=== PATIENT | male | born 1975 | race Caucasian/White ===

== ENCOUNTER 2022-12-21 11:58 | Emergency (ER) | payer MEDICAID ==
[~2022-12-21] VITALS: Ht 175.3 cm; Wt 99.8 kg
[2022-12-21 12:16] VITALS: BP_SYST 132; PULSE 116; RESP 18; TEMP 97.9; O2SAT 98
[2022-12-21] MEDS ORDERED: SULF1TAB47 PO (12:44)
[2022-12-21] MEDS ORDERED: BACITRACIN 1 GM OINT TP ONE (12:45)
[2022-12-21 13:43] VITALS: BP_SYST 126; PULSE 74; RESP 18; TEMP 97.1; O2SAT 97
== END 2022-12-21 12:59 | disposition home or self-care (01) ==
LOC: SED 11:58
DX: L03.113 Cellulitis of right upper limb (principal); Z79.899 Other long term (current) drug therapy
CPT/HCPCS: 99283

== ENCOUNTER 2023-06-07 19:37 | Emergency (ER) | payer MEDICAID ==
[~2023-06-07] VITALS: Ht 175.3 cm; Wt 90.7 kg
[~2023-06-07 19:37] MED LIST: SULF1TAB47 PO
[2023-06-07 19:38] VITALS: BP_SYST 148; PULSE 95; RESP 18; TEMP 97; O2SAT 97
== END 2023-06-07 19:47 ==
LOC: SED 19:37
DX: Z02.89 Encounter for other administrative examinations (principal)
CPT/HCPCS: 99283